=== PATIENT | female | born 1985 | race Caucasian/White ===

== ENCOUNTER 2017-04-07 17:57 | Emergency (ER) | payer MEDICAID, OTHER ==
[~2017-04-07] VITALS: Ht 160 cm; Wt 61.2 kg
[2017-04-07] MEDS ORDERED: cloNIDine HCL 0.1 MG TAB ONE (18:54)
[2017-04-07] MEDS ORDERED: HYDROcodone-ACET 7.5/325MG TAB PO ONE (20:00)
[2017-04-07] MEDS ORDERED: KETOROLAC TROMETH 60MG/2ML VIAL IM ONE (20:00)
[2017-04-07 20:09] LABS: Basophils # (auto) 0 uL; Basophils % (auto) 0.6 % (0.0-2.0); Eosinophils # (auto) 0 uL; Eosinophils % (auto) 0.7 % (0.0-7.0); Hematocrit 40.1 % (36.0-46.0); Lymphocytes # (auto) 2.4 uL; Lymphocytes % (auto) 32.4 % (10.0-50.0); Mean Corpuscular Hemoglobin 30.1 pg (28.0-32.0); Mean Corpuscular Volume 85.8 fL (80.0-100.0); Mean Platelet Volume 8.8 fL (6.9-10.8); Monocytes # (auto) 0.6 uL; Monocytes % (auto) 8.5 % (0.0-12.0); Neutrophils # (auto) 4.3 uL; Neutrophils % (auto) 57.8 % (37.0-80.0); Platelet Count (auto) 192 10^3/uL (140-450); Red Cell Distribution Width 13.7 % (11.8-14.3); White Blood Cell 7.4 10^3/uL (4.4-10.8)
[2017-04-07] MEDS ORDERED: cloNIDine HCL 0.1 MG TAB PO ONE (20:15)
[2017-04-07 20:23] LABS: INR 0.99 (0.9-1.15); Partial Thromboplastin Time 28.2 sec (22.64-33.71); Prothrombin Time 10.8 sec (9.37-12.3)
[2017-04-07 20:26] LABS: Albumin 4.4 g/dL (3.4-5.0); Anion Gap 8 (5-15); BUN/Creatinine Ratio 14.8; Blood Urea Nitrogen 9 mg/dL (7-18); Calcium 8.8 mg/dL (8.5-10.1); Carbon Dioxide 26 mmol/L (21-32); Chloride 105 mmol/L (98-107); GFR African American 146 mL/min; GFR Non-African American 121 mL/min; Glucose 99 mg/dL (74-106); Sodium 139 mmol/L (136-145)
[2017-04-07 20:35] LABS: Alkaline Phosphatase 56 U/L (45-117); Aspartate Aminotransferase 17 U/L (15-37); Bilirubin, Total 0.6 mg/dL (0.2-1.0); Total Protein 8.1 g/dL (6.4-8.2)
[2017-04-07 20:52] VITALS: BP 150/113
== END 2017-04-07 21:16 | disposition home or self-care (01) ==
LOC: ER 17:57
DX: M79.601 Pain in right arm (principal); I10 Essential (primary) hypertension
CPT/HCPCS: 36415; 73090; 80053; 84484; 84702; 85025; 85610; 85730; 96372; 99285; J1885